=== PATIENT | female | born 1985 | race Caucasian/White ===

== ENCOUNTER 2017-04-13 11:30 | Emergency (ER) | payer OTHER ==
[~2017-04-13] VITALS: Ht 167.6 cm; Wt 98.0 kg
[2017-04-13 11:35] VITALS: BP 134/86
--- NOTE | 2017-04-13 12:25 | NUR ---
PATIENT IS A 31 YO FEMALE BIB SELF FOR COUGH AND CONGESTION FOR 3 DAYS, AWAKE AND ALERT NO FEVER NO VOMITING OR DIARRHEA.
[2017-04-13 12:42] VITALS: BP 127/78
--- NOTE | 2017-04-13 12:43 | NUR ---
Patient discharged with v/s stable. Written and verbal after care instructions given and explained. Patient alert, oriented and verbalized understanding of instructions. Ambulatory with steady gait. All questions addressed prior to discharge. ID band removed. Patient advised to follow up with PMD. Rx of ALBUTEROL INHALER, PREDNISONE AND COUGH SYRUP. given. Patient educated on indication of medication including possible reaction and side effects. Opportunity to ask questions provided and answered.
== END 2017-04-13 12:43 | disposition home or self-care (01) ==
LOC: MED 11:30
DX: B34.9 Viral infection, unspecified (principal); J40 Bronchitis, not specified as acute or chronic; R03.0 Elevated blood-pressure reading, without diagnosis of hypertension
CPT/HCPCS: 71045; 99283